=== PATIENT | male | born 1985 | race Caucasian/White ===

== ENCOUNTER 2024-02-13 04:39 | Emergency (ER) | payer OTHER ==
[~2024-02-13] VITALS: Ht 188 cm; Wt 109.6 kg
[~2024-02-13 04:39] MED LIST: LORA-205 PO
--- NOTE | 2024-02-13 05:55 | DVH ---
PROCEDURE: Left thumb radiographs. INDICATION: R/O Foreign Body TECHNIQUE: 3 views of the left thumb were obtained. COMPARISON: None FINDINGS: There is no evidence of fracture or dislocation. Joint spaces are maintained. No radiopaqu e foreign body. IMPRESSION: 1. No radiopaque foreign body. No fracture or dislocation. If there is persistent concern for injury, CT of the left thumb is recommended.
--- NOTE | 2024-02-13 06:31 | ED.PDOC ---
History of Present Illness HPI Comments 38-year-old male presents with a chief complaint of edema and wound to left thumb s/p fiber-glass splinter going underneath his left nail bed. Patient states that the case is a workers compensation and was referred to the ER by the urgent care that he went to. Patient has redness and swelling to the nail bed of his left thumb. Patient is able to move his left thumb and reports mild discomfort. No other symptoms or modifying factors present at this time. Chief Complaint: Foreign Body Time Seen by MD: 06:18 Primary Care Provider: NONE Reviewed Notes: Medications, Allergies Allergies: Coded Allergies: NO KNOWN ALLERGIES (Unverified , 07/23/12) Home Meds Reported Medications Lorazepam (Ativan) 1 Mg Tab, 1 MG PO 09/18/12 Information Source: Patient Mode of Arrival: Ambulatory Severity: Moderate Timing: Days Duration: Since onset Prehospital treatment: None Past Medical History PAST MEDICAL HISTORY: Anxiety, Asthma Surgical History: Denies all surgeries Family History Family History: Reviewed,noncontributory to illness, No family hx of Heart bozena Social History Smoker: Quit Less Than 1 Year Alcohol: Heavy Drugs: Cocaine Lives In: Home Constitutional: denies: chills, diaphoresis, fatigue, fever, malaise, sweats, weakness, others EENTM: denies: blurred vision, double vision, ear bleeding, ear discharge, ear drainage, ear pain, ear ringing, eye pain, eye redness, hearing loss, mouth pain, mouth swelling, nasal discharge, nose bleeding, nose congestion, nose pain, photophobia, tearing, throat pain, throat swelling, voice changes, others Respiratory: denies: cough, hemoptysis, orthopnea, SOB at rest, shortness of breath, SOB with excertion, stridor, wheezing, others Cardiovascular: reports: edema (left thumb); denies: chest pain, dizzy spells, diaphoresis, Dyspnea on exertion, irregular heart beat, left arm pain, lightheadedness, palpitations, PND, syncope, others Gastrointestinal: denies: abdomen distended, abdominal pain, blood streaked bowels, constipated, diarrhea, dysphagia, difficulty swallowing, hematemesis, melena, nausea, poor appetite, poor fluid intake, rectal bleeding, rectal pain, vomiting, others Genitourinary: denies: burning, dysuria, flank pain, frequency, hematuria, incontinence, penile discharge, penile sore, pain, testicle pain, testicle swelling, urgency, others Neurological: denies: dizziness, fainting, headache, left sided numbness, left sided weakness, numbness, paresthesia, pre-existing deficit, right sided numbness, right sided weakness, seizure, speech problems, tingling, tremors, weakness, others Musculoskeletal: denies: back pain, gout, joint pain, joint swelling, muscle pain, muscle stiffness, neck pain, others Integumetry: reports: wounds (left thumb); denies: bruises, change in color, change in hair/nails, dryness, laceration, lesions, lumps, rash, others Allergic/Immunocompromised: denies: Difficulty Healing, Frequent Infections, Hives, Itching, others Hematologic/Lymphatic: denies: anemia, blood clots, easy bleeding, easy bruising, swollen glands, others Endocrine: denies: excessive hunger, excessive sweating, excessive thirst, excessive urination, flushing, intolerance to cold, intolerance to heat, unexplained weight gain, unexplained weight loss, others Psychiatric: denies: anxiety, bipolar disorder, depression, hopeless, panic disorder, schizophrenia, sleepless, suicidal, others All Other Systems: Reviewed and Negative Physical Exam General Appearance: No Apparent Distress, Normal HEENT: Normal ENT Inspection, Pharynx Normal, TMs Normal Neck: Full Range of Motion, Non-Tender, Normal, Normal Inspection Respiratory: Chest Non-Tender, Lungs Clear, No Accessory Muscle Use, No Respiratory Distress, Normal Breath Sounds Cardiovascular: No Edema, No JVD, No Murmur, No Gallop, Normal Peripheral Pulses, Regular Rate/Rhythm Breast Exam: Deferred Gastrointestinal: No Organomegaly, Non Tender, No Pulsatile Mass, Normal Bowel Sounds, Soft Genitalia: Deferred Pelvic: Deferred Rectal: Deferred Extremities: No calf tenderness, Normal capillary refill, Normal inspection, Normal range of motion, Non-tender, No pedal edema Musculoskeletal : Apperance: Normal Neurologic: Alert, short story writer II-XII nml as Tested, No Motor Deficits, Normal Affect, Normal Mood, No Sensory Deficits Cerebellar Function: NOT DONE Reflexes: NOT DONE Skin: Dry, Normal Color, Warm Lymphatic: No Adenopathy Was a procedure done? Was a procedure done?: No Differential Dx Considerations may include: retained foreign body, cellulitis X-Ray, Labs, Meds, VS Vital Signs Date Time Temp Pulse Resp B/P (MAP) Pulse Ox O2 Delivery O2 Flow Rate FiO2 02/13/24 04:51 97.8 71 18 104/76 (85) 94 Time of 1ST Reevaluation: 06:48 Reevaluation 1ST: Unchanged Patient Education/Counseling: Diagnosis, Treatment, Prognosis Family Education/Counseling: No Family Present Departure 1 Departure Time of Disposition: 06:33 (Patient without foreign body on x-ray. Explained to patient that he needs to follow up with orthopedics. Will place a referrral. ) Impression: Primary Impression: Cellulitis of left thumb Disposition: 01 HOME / SELF CARE / HOMELESS Condition: Stable Referrals: TAYE ORELLANA MD Additional Instructions: Your x-ray was benign. It is important to follow up with orthopedics. Please call for an appointment. If your symptoms worsen or you have any other concerns then please return to the ER. Discharged With: Self Critical Care Note Critical Care Time?: No Stability Stability form required: No I personally scribed for KIERA COLLINS MD ([email or web address]) on 02/13/24 at 06:31. Electronically submitted by Greg Nelson ([email or web address]). KIERA COLLINS MD Feb 13, 2024 06:31
[2024-02-13 07:36] VITALS: BP 115/75; PULSE 67; RESP 14; TEMP 97.9; O2SAT 97
== END 2024-02-13 07:38 | disposition home or self-care (01) ==
LOC: ER 04:39
DX: L03.012 Cellulitis of left finger (principal); F41.9 Anxiety disorder, unspecified; J45.909 Unspecified asthma, uncomplicated; Z87.891 Personal history of nicotine dependence; X58.XXXA Exposure to other specified factors, initial encounter; Y93.89 Activity, other specified; Y92.69 Other specified industrial and construction area as the place of occurrence of the external cause; Y99.8 Other external cause status
CPT/HCPCS: 73140; 99283; J7030